=== PATIENT | male | born 1935 | race Two or more races ===

== ENCOUNTER 2018-01-31 08:24 | Outpatient (CLI) | payer OTHER ==
[~2018-01-31 08:24] MED LIST: NORVASC5 MG; SYNTHROID50 MCG; TAMS0.4C; VASOTEC10 MG; ZOCOR5 MG
== END 2018-01-31 08:29 | disposition home or self-care (01) ==
LOC: RX STUDY 08:24
DX: R13.11 Dysphagia, oral phase (principal); R63.4 Abnormal weight loss

== ENCOUNTER → 2018-02-08 16:30 | Outpatient (CLI) | payer OTHER | END | disposition home or self-care (01) | LOC: LAB 16:30 | DX: C18.2 Malignant neoplasm of ascending colon (principal); Z51.81 Encounter for therapeutic drug level monitoring ==

== ENCOUNTER 2018-02-12 08:24 | Outpatient (CLI) | payer OTHER | END 2018-02-12 11:45 | disposition home or self-care (01) | LOC: MRI 08:24 | DX: C18.2 Malignant neoplasm of ascending colon (principal); C61 Malignant neoplasm of prostate; D51.3 Other dietary vitamin B12 deficiency anemia; I10 Essential (primary) hypertension; E03.8 Other specified hypothyroidism; E55.9 Vitamin D deficiency, unspecified; I73.89 Other specified peripheral vascular diseases; E78.2 Mixed hyperlipidemia | CPT/HCPCS: 72156; A9579 ==

== ENCOUNTER 2018-02-23 10:44 | Outpatient (CLI) | payer OTHER | END 2018-02-23 10:53 | disposition home or self-care (01) | LOC: RAD 501 10:44 | DX: R05 Cough (principal) ==

== ENCOUNTER 2018-04-26 10:21 | Outpatient (CLI) | payer OTHER | END 2018-04-26 18:15 | disposition home or self-care (01) | LOC: RAD 501 10:21 | DX: R13.10 Dysphagia, unspecified (principal); R05 Cough; R63.4 Abnormal weight loss; R97.0 Elevated carcinoembryonic antigen [CEA]; I70.0 Atherosclerosis of aorta ==

== ENCOUNTER 2019-01-29 19:21 | Emergency (ER) | payer OTHER ==
[~2019-01-29] VITALS: Ht 167.6 cm; Wt 49.9 kg
[2019-01-29] MEDS ORDERED: STOOL SOFTENER100 MG (19:32)
== END 2019-01-29 21:24 | disposition home or self-care (01) ==
LOC: ER 19:21
DX: K59.09 Other constipation (principal)

== ENCOUNTER 2019-11-20 15:51 | Inpatient (IN) | payer OTHER ==
[~2019-11-20] VITALS: Ht 167.6 cm; Wt 49.9 kg
[~2019-11-20 15:51] MED LIST changes: +STOOL SOFTENER100 MG
--- NOTE | 2019-11-20 16:26 | NUR ---
PTE REFIERE AYAKA EN LA ESCRETA DESDE ANALI SE SAKSHI S/V Y SE UBICA EN AREA DE OBSERVACION
[2019-11-20] MEDS ORDERED: TAMS0.4C (16:29)
[2019-11-20] MEDS ORDERED: TOLTERODINE TART1 MG (16:30)
--- NOTE | 2019-11-20 18:19 | NUR ---
SE RDECIBE PTE MASCULINO ALERTA Y OIOENTADO X3,ACOMPANDO DE FAMIULIAR EVALUADO POR ,SE ORIENTA A PTE SOBRE ORDEN MEDICA,SE SAKSHI MUESTRAS Y SE ENVIAN A LABORATORIO,SE CANALAIZA Y COLOCA IVF PATENTE AREA RAMÓN DE EDEMA Y ENROJECIMIENTO,SE REALIZA EKG,NOTIFICADO POR LABORATORIO A HGB-7.3. PTE EN OBSERVACION POR CAMBIOS.
--- NOTE | 2019-11-20 19:43 | NUR ---
SE REALIZA TUBO LIAT PARA 3 UNIDADES DE PRBC PARA SER TRANSFUNDIDAS,SE ENTREHAN NERIS BANCO DE AYAKA A RADHA QUIEN ME NOTIFICARA CUABDO ESTEN DISPONIBLES.
[2019-11-27] MEDS ORDERED: PROTONIX40 MG PO (13:44)
== END 2019-11-27 13:58 | disposition home or self-care (01) | DRG 378 ==
LOC: ER 15:51 → MEDI 21:40 → SEC-K 21:40 → MEDI 11-21 01:27
PROVIDERS: ADMIT Internal Medicine; ATTEND Internal Medicine
PROC: 30233N1 Transfusion of Nonautologous Red Blood Cells into Peripheral Vein, Percutaneous Approach (ICD-10-PCS; principal; 2019-11-21)
PROC: 0DJ08ZZ Inspection of Upper Intestinal Tract, Via Natural or Artificial Opening Endoscopic (ICD-10-PCS; 2019-11-25)
DX: K92.1 Melena (principal); N13.30 Unspecified hydronephrosis; I10 Essential (primary) hypertension; I25.10 Atherosclerotic heart disease of native coronary artery without angina pectoris; E03.9 Hypothyroidism, unspecified; Z85.038 Personal history of other malignant neoplasm of large intestine; R13.10 Dysphagia, unspecified; D50.0 Iron deficiency anemia secondary to blood loss (chronic); C61 Malignant neoplasm of prostate; K26.9 Duodenal ulcer, unspecified as acute or chronic, without hemorrhage or perforation; Z95.1 Presence of aortocoronary bypass graft

== ENCOUNTER 2020-05-15 09:59 | Emergency (ER) | payer OTHER ==
[~2020-05-15] VITALS: Ht 170.2 cm; Wt 46.7 kg
[~2020-05-15 09:59] MED LIST changes: +PROTONIX40 MG PO; +TOLTERODINE TART1 MG
[2020-05-15] MEDS ORDERED: SYNTHROID50 MCG (10:18)
[2020-05-15] MEDS ORDERED: BETHANECHOL CHL25 MG (10:19)
[2020-05-15] MEDS ORDERED: CIPRO500 MG PO (14:51)
== END 2020-05-15 16:00 | disposition home or self-care (01) ==
LOC: ER 09:59
DX: D64.89 Other specified anemias (principal); N39.0 Urinary tract infection, site not specified; B96.29 Other Escherichia coli [E. coli] as the cause of diseases classified elsewhere; R31.29 Other microscopic hematuria; Z03.818 Encounter for observation for suspected exposure to other biological agents ruled out

== ENCOUNTER 2020-06-02 13:30 | Inpatient (IN) | payer OTHER ==
[~2020-06-02] VITALS: Ht 165.1 cm; Wt 5.0 kg
[~2020-06-02 13:30] MED LIST changes: +BETHANECHOL CHL25 MG; +CIPRO500 MG PO
== END 2020-06-06 16:17 | disposition home or self-care (01) | DRG 387 ==
LOC: ER 13:30 → MEDJ 21:34
PROVIDERS: ADMIT Internal Medicine; ATTEND Internal Medicine
PROC: 0DB68ZX Excision of Stomach, Via Natural or Artificial Opening Endoscopic, Diagnostic (ICD-10-PCS; principal; 2020-06-04)
PROC: 30233N1 Transfusion of Nonautologous Red Blood Cells into Peripheral Vein, Percutaneous Approach (ICD-10-PCS; 2020-06-04)
PROC: 0DBP8ZX Excision of Rectum, Via Natural or Artificial Opening Endoscopic, Diagnostic (ICD-10-PCS; 2020-06-05)
DX: K51.80 Other ulcerative colitis without complications (principal); D50.8 Other iron deficiency anemias; I10 Essential (primary) hypertension; Z85.038 Personal history of other malignant neoplasm of large intestine; Z95.1 Presence of aortocoronary bypass graft; Z20.822 Contact with and (suspected) exposure to COVID-19; E03.8 Other specified hypothyroidism; Z08 Encounter for follow-up examination after completed treatment for malignant neoplasm

== ENCOUNTER 2023-01-23 13:23 | Emergency (ER) | payer OTHER ==
[~2023-01-23] VITALS: Ht 167.6 cm; Wt 47.6 kg
[2023-01-23] MEDS ORDERED: ANALPRAM HC 2.530 GM RECTAL (18:09)
== END 2023-01-23 18:43 | disposition home or self-care (01) ==
LOC: ER 13:23
PROVIDERS: General Practice
DX: K64.9 Unspecified hemorrhoids (principal)
CPT/HCPCS: 36415; 74176; 96365; 96366; 99283; J7030